=== PATIENT | female | born 1975 | race Hispanic/Latino ===

== ENCOUNTER 2021-03-01 21:37 | Emergency (ER) | payer MEDICAID ==
[~2021-03-01 21:37] MED LIST: DAPA10TA PO; EZET10TA13 PO; INSU100I21 SQ; INSU100V3 SQ; IRON1CAP32 PO; LACO100T2 PO; LEVE750T10 PO; LEVO175T9 PO; LEVO250T59 PO; LOSA50TA64 PO; OXCA300T28 PO; ROSU20TA23 PO
== END 2021-03-02 01:59 | disposition home or self-care (01) ==
LOC: EDH 21:37
DX: S22.32XA Fracture of one rib, left side, initial encounter for closed fracture (principal); S80.01XA Contusion of right knee, initial encounter; I10 Essential (primary) hypertension; E11.9 Type 2 diabetes mellitus without complications; E78.5 Hyperlipidemia, unspecified; E07.9 Disorder of thyroid, unspecified; Z86.73 Personal history of transient ischemic attack (TIA), and cerebral infarction without residual deficits; Z88.1 Allergy status to other antibiotic agents; W18.39XA Other fall on same level, initial encounter; Y93.01 Activity, walking, marching and hiking; Y92.89 Other specified places as the place of occurrence of the external cause; Y99.8 Other external cause status
CPT/HCPCS: 71045; 73562

== ENCOUNTER 2023-02-02 14:15 | Emergency (ER) | payer MEDICAID ==
[~2023-02-02] VITALS: Ht 157.5 cm; Wt 127.0 kg
[~2023-02-02 14:15] MED LIST changes: -INSU100I21 SQ; +INSU100I22 SQ; -LEVO250T59 PO; +LEVO250T75 PO
[2023-02-02 15:15] LABS: BASOPHILS % (AUTO) 0.3 % (0.0-5.0); EOSINOPHILS % (AUTO) 3.4 % (0.0-8.0); HEMATOCRIT 37.2 % (36-48); LYMPHOCYTES % (AUTO) 14.8 % (21.0-51.0); MEAN CORPUSCULAR HEMOGLOBIN 29.4 pg (27.0-33.0); MEAN CORPUSCULAR VOLUME 91.9 fL (79-99); MONOCYTES % (AUTO) 5.6 % (3.0-13.0); NEUTROPHILS % (AUTO) 75.4 % (40.0-77.0); PLATELET COUNT (AUTO) 370 K/uL (130-400); RED BLOOD CELL COUNT(AUTO) 4.05 MIL/uL (4.00-5.50); RED CELL DISTRIBUTION WIDTH 15.4 % (11.0-15.5); WHITE BLOOD COUNT (AUTO) 11.9 K/uL (4.8-10.8)
[2023-02-02 15:31] LABS: ALBUMIN 2.9 g/dL (3.5-5.0); POTASSIUM 3.8 mmol/L (3.5-5.1); TOTAL PROTEIN, SERUM 7.7 g/dL (6.0-8.3)
[2023-02-02] MEDS ORDERED: MECLIZINE HCL 25 MG TABLET PO ONE (16:00)
[2023-02-02] MEDS ORDERED: 0.9% NACL 500ML IV.SOLN 500 ML IV ONE (16:00)
[2023-02-02] MEDS ORDERED: 0.9%NACL 1000ML 1,000 ML IV ONE (16:00)
[2023-02-02 16:33] LABS: HCG,QUALITATIVE URINE NEGATIVE (NEGATIVE)
[2023-02-02 16:40] LABS: APPEARANCE,URINE CLEAR (CLEAR); BILIRUBIN,URINE NEGATIVE (NEGATIVE); COLOR,URINE COLORLESS (YELLOW); GLUCOSE, URINE (UA) >=1000 mg/dL (NEGATIVE); KETONES,URINE NEGATIVE (NEGATIVE); LEUKOCYTE ESTERASE ,URINE NEGATIVE Leu/uL (NEGATIVE); NITRATE,URINE NEGATIVE (NEGATIVE); OCCULT BLOOD,URINE NEGATIVE (NEGATIVE); PROTEIN,URINE NEGATIVE (NEGATIVE); UROBILINOGEN,URINE 0.2 mg/dL (0.2-1.0)
[2023-02-02] MEDS ORDERED: BACI1CAP6 PO (16:56)
[2023-02-02] MEDS ORDERED: ONDA4TAB10 PO (16:56)
[2023-02-02 16:57] LABS: BACTERIA,URINE RARE /HPF (None Seen); RBC,URINE 0-1 /HPF (0-1); SQUAMOUS EPITHELIAL CELL,UR RARE /HPF (0-2)
[2023-02-02 17:52] VITALS: BP 149/59
== END 2023-02-02 18:00 | disposition home or self-care (01) ==
LOC: EDH 14:15
DX: K52.9 Noninfective gastroenteritis and colitis, unspecified (principal); E86.0 Dehydration; E11.65 Type 2 diabetes mellitus with hyperglycemia; E78.00 Pure hypercholesterolemia, unspecified; I10 Essential (primary) hypertension; Z79.899 Other long term (current) drug therapy; Z88.8 Allergy status to other drugs, medicaments and biological substances; Z20.822 Contact with and (suspected) exposure to COVID-19
CPT/HCPCS: 99283; 96374; 87635; 80053; 85025; 82010; 81001; 81025; 36415; C9803; J7040; J7030

== ENCOUNTER 2023-04-14 19:36 | Emergency (ER) | payer MEDICAID ==
[~2023-04-14] VITALS: Ht 157.5 cm; Wt 122.0 kg
[~2023-04-14 19:36] MED LIST changes: +BACI1CAP6 PO; +ONDA4TAB10 PO
[2023-04-14 19:39] VITALS: BP 136/74
[2023-04-14 20:44] LABS: BASOPHILS % (AUTO) 0.3 % (0.0-5.0); HEMATOCRIT 39.4 % (36-48); LYMPHOCYTES % (AUTO) 18.9 % (21.0-51.0); MEAN CORPUSCULAR HEMOGLOBIN 29.1 pg (27.0-33.0); MEAN CORPUSCULAR HGB CONC 31.7 g/dL (32.0-36.0); MEAN CORPUSCULAR VOLUME 91.8 fL (79-99); MONOCYTES % (AUTO) 5.8 % (3.0-13.0); NEUTROPHILS % (AUTO) 72.6 % (40.0-77.0); PLATELET COUNT (AUTO) 396 K/uL (130-400); RED BLOOD CELL COUNT(AUTO) 4.29 MIL/uL (4.00-5.50); RED CELL DISTRIBUTION WIDTH 14.6 % (11.0-15.5); WHITE BLOOD COUNT (AUTO) 14.6 K/uL (4.8-10.8)
[2023-04-14 20:53] LABS: CREATININE 0.9 mg/dL (0.5-1.5); POTASSIUM 4.7 mmol/L (3.5-5.1)
[2023-04-14 20:57] LABS: ALBUMIN 3.2 g/dL (3.5-5.0); TOTAL PROTEIN, SERUM 8.4 g/dL (6.0-8.3)
[2023-04-15 00:01] LABS: APPEARANCE,URINE CLOUDY (CLEAR); BILIRUBIN,URINE NEGATIVE (NEGATIVE); COLOR,URINE YELLOW (YELLOW); GLUCOSE, URINE (UA) >=1000 mg/dL (NEGATIVE); KETONES,URINE NEGATIVE (NEGATIVE); LEUKOCYTE ESTERASE ,URINE 250 Leu/uL (NEGATIVE); NITRATE,URINE NEGATIVE (NEGATIVE); OCCULT BLOOD,URINE NEGATIVE (NEGATIVE); PH,URINE 5.5 (5.0-8.0); PROTEIN,URINE 20 mg/dL (NEGATIVE); UROBILINOGEN,URINE 0.2 mg/dL (0.2-1.0)
[2023-04-15 00:04] LABS: BACTERIA,URINE MOD /HPF (None Seen); MUCUS,URINE RARE LPF (None Seen); SQUAMOUS EPITHELIAL CELL,UR FEW /HPF (0-2); WBC,URINE 26-50 /HPF (0-1)
[2023-04-15] MEDS ORDERED: IBUP-1493 PO (00:30)
[2023-04-15] MEDS ORDERED: CEFTRIAXONE 1G VIAL IVPB ONE (00:30)
[2023-04-15] MEDS ORDERED: CEFU500T67 PO (00:30)
== END 2023-04-15 00:51 | disposition home or self-care (01) ==
LOC: EDH 19:36
DX: N39.0 Urinary tract infection, site not specified (principal); E11.9 Type 2 diabetes mellitus without complications; E78.00 Pure hypercholesterolemia, unspecified; I10 Essential (primary) hypertension; Z79.1 Long term (current) use of non-steroidal anti-inflammatories (NSAID); Z79.4 Long term (current) use of insulin; Z79.899 Other long term (current) drug therapy; Z88.0 Allergy status to penicillin; Z90.49 Acquired absence of other specified parts of digestive tract
CPT/HCPCS: 99285; 74176; 96374; 71045; 80053; 84703; 83690; 85025; 87077; 87088; 87186; 81001; 36415; J0696

== ENCOUNTER 2023-06-08 17:11 | Emergency (ER) | payer MEDICAID ==
[~2023-06-08] VITALS: Ht 157.5 cm; Wt 73.5 kg
[~2023-06-08 17:11] MED LIST changes: +CEFU500T67 PO; +IBUP-1493 PO
[2023-06-08 19:46] VITALS: BP 143/68; PULSE 82; RESP 18
== END 2023-06-08 19:50 | disposition home or self-care (01) ==
LOC: EDH 17:11
DX: S00.03XA Contusion of scalp, initial encounter (principal); W01.198A Fall on same level from slipping, tripping and stumbling with subsequent striking against other object, initial encounter; Y93.89 Activity, other specified; Y92.89 Other specified places as the place of occurrence of the external cause; Y99.8 Other external cause status
CPT/HCPCS: 70450

== ENCOUNTER → 2025-05-05 | Emergency (ER) | payer MEDICAID ==
[~2025-05-05] VITALS: Ht 157.5 cm; Wt 98.4 kg
[~2025-05-05] MED LIST changes: +ATOR40TA71 PO; -BACI1CAP6 PO; -CEFU500T67 PO; +CYCL-309 PO; +ESCI5TAB16 PO; -EZET10TA13 PO; +EZET10TA81 PO; +FAMO20TA8 PO; -IBUP-1493 PO; +IBUP-2070 PO; -INSU100I22 SQ; -INSU100V3 SQ; +LACO200T4 PO; -LEVO175T9 PO; +LEVO200C3 PO; -LEVO250T75 PO; +LOSA-418 PO; +METR-172 PO; +NITR100C PO; -ONDA4TAB10 PO; -OXCA300T28 PO; -ROSU20TA23 PO; +cefTRIAXone 1G VIAL IM ONE
--- NOTE | 2025-05-05 21:58 | ERN ---
ED Note History of Present Illness Stated Complaint: FALL Chief Complaint: Mechanical Fall Time Seen by MD: 21:45 Time Seen by Midlevel: 21:50 Dictation: Ms. Winters is a 49 year old female with history of obesity, hypertension, hyperlipidemia, hypothyroidism, type II DM, and cerebral aneurysm (2011) who presented to the emergency department this evening for evaluation after a fall. She states that she tripped on the carpet at a store and fell onto her left side. She complains of pain to the left side of her head, neck, and left cheek/facial bones. She denies having LOC. She denies taking anticoagulants. She also states she does have some pain to the left knee. She denies fever, chills, shortness of breath, cough, chest pain, palpitations, edema, abdominal pain, nausea, vomiting, hematemesis, constipation, diarrhea, melena, hematochezia, dysuria, dizziness, or focal weakness/paresthesia Allergies: Coded Allergies: Amoxicillin (Verified Allergy, 06/26/13) Home Meds Active Scripts Metronidazole (Metronidazole) 500 Mg Tablet, 1 TAB PO BID for 7 Days, #14 TAB 0 Refills Prov:DEBORAMOLLY CEDILLO PROGRAM COORDINATOR EXECUTIVE EDUCATION 11/04/24 Losartan Potassium (Cozaar) 50 Mg Tablet, 50 MG PO DAILY, #60 TAB Prov:DEBORAMOLLY CEDILLO PROGRAM COORDINATOR EXECUTIVE EDUCATION 11/04/24 Famotidine (Famotidine) 20 Mg Tablet, 20 MG PO DAILY, #60 TAB Prov:DEBORAMOLLY CEDILLO PROGRAM COORDINATOR EXECUTIVE EDUCATION 11/04/24 Reported Medications Atorvastatin Calcium (Atorvastatin Calcium) 40 Mg Tablet, 1 TAB PO DAILY for 30 Days, #30 TAB 0 Refills 11/02/24 Levothyroxine Sodium (Levothyroxine) 200 Mcg Capsule, 200 MCG PO AM, CAP 11/02/24 Escitalopram Oxalate (Escitalopram Oxalate) 5 Mg Tablet, 5 MG PO AM, TAB 11/02/24 Lacosamide (Lacosamide) 200 Mg Tablet, 200 MG PO BID, TAB 11/02/24 Dapagliflozin Propanediol (Farxiga) 10 Mg Tablet, 10 MG PO AM, TAB 11/02/24 Dapagliflozin Propanediol (Farxiga) 10 Mg Tablet, 10 MG PO HS, TAB 10/25/16 Ezetimibe (Zetia) 10 Mg Tablet, 10 MG PO HS, TAB 09/15/16 Iron Fum & P/FA/Vit B & C No.9 (Integra Plus Capsule) 1 Each Capsule, 1 EACH PO DAILY, CAP 09/15/16 Losartan Potassium (Losartan Potassium) 50 Mg Tablet, 50 MG PO DAILY, TAB 09/15/16 Lacosamide (Vimpat) 100 Mg Tab, 100 MG PO BID, TAB 09/15/16 Levetiracetam (Levetiracetam) 750 Mg Tablet, 2 TAB PO BID, TAB 09/15/16 Past Medical History Past Medical History: Diabetes-Type II, High Cholesterol, Hypertension Additional Past Medical Hx: THYROID CA (REMISSION); HX OF ANEURYISM (2011) Surgical History: Appendectomy, Cholecystectomy, Surgical History Other: THYROIDECTOMY PSYCH History: no pertinent psych hx Family History: Negative Social History: Negative, Lives with family History: Not Applicable RN Note Reviewed/Agreed w/PFSH: Yes Review of System Dictation REVIEW OF SYSTEMS: CONSTITUTIONAL: Patient denies fevers, chills, sweats and weight changes. EYES: Patient denies any visual symptoms. EARS, NOSE, AND THROAT: No difficulties with hearing. No symptoms of rhinitis or sore throat. Reports pain to left side of face/cheek. CARDIOVASCULAR: Patient denies chest pains, palpitations, orthopnea and paroxysmal nocturnal dyspnea. RESPIRATORY: No dyspnea on exertion, no wheezing or cough. GI: No nausea, vomiting, diarrhea, constipation, abdominal pain, hematochezia or melena. : No urinary hesitancy or dribbling. No nocturia or urinary frequency. No abnormal urethral discharge. MUSCULOSKELETAL: Reports pain to left lateral neck. Reports pain to left knee. NEUROLOGIC: No chronic headaches, no seizures. Patient denies numbness, tingling or weakness. Reports left-sided headache. PSYCHIATRIC: Patient denies problems with mood disturbance. No problems with anxiety. ENDOCRINE: No excessive urination or excessive thirst. DERMATOLOGIC: Patient denies any rashes or skin changes. Initial Vital Sign VS Vital Signs Date Time Temp Pulse Resp B/P (MAP) Pulse Ox O2 Delivery O2 Flow Rate FiO2 05/05/25 21:25 97.9 88 18 177/92 99 Room Air 05/05/25 22:59 0 21 Physical Exam Dictation Vital signs: Reviewed. Afebrile Constitutional: Uncomfortable. Head/Face: There is tenderness upon palpation to the left cheek/face with edema. Eyes: Periorbital areas with no swelling, redness, or edema. Lids and lashes are normal. Conjunctival injection is absent. Sclera anicteric. Pupils equal, round, reactive to light. ENT: Pinnas intact and no signs of trauma or erythema. Ear canals clear and no discharge. TMs no erythema. No nasal discharge or bleeding noted. Oropharynx with no exudate, redness, swelling, masses, exudates, or evidence of obstruction. Uvula midline. Mucous membranes moist. No loose teeth (does not have bottom teeth per baseline). There is tenderness upon palpation left zygoma. Neck: Trachea midline, no masses palpated, and no cervical lymphadenopathy. No swelling. Supple, full range of motion. Chest/Axilla: No tenderness, no crepitus, no paradoxical movement, no r etractions. Cardiovascular: Regular rate, regular rhythm, no murmur, no gallops. Symmetric pulses. No peripheral edema. BP is elevated at 170 7/92 Respiratory: Respirations even and unlabored. Lung sounds clear; no wheezes, rales or rhonchi. Room air SpO2 99%. Gastrointestinal: Inspection is normal. No distention is appreciated. Bowel sounds are normal. No mass or organomegaly . There is no tenderness. No rebound. No rigidity. No voluntary or involuntary guarding. No Lizama's sign. Neurological: Normal speech, gross motor function intact, gross sensory function intact. No focal weakness/Paresthesia. Moves all extremities. Rigid C-collar is in place. Musculoskeletal/Extremities: Pain with ROM left knee with slight swelling. She has good color, warmth, movement, and sensation to left toes. Capillary refills less than 2 seconds. Pedal pulses palpable/strong. Integumentary: Intact. Skin is normal color, warm and dry. Cap refill less than 2 seconds. Results (Laboratory/Radiology) Laboratory/Radiology Laboratory Tests Test 05/05/25 23:00 Urine Color LIGHT-YELLOW (YELLOW) Urine Appearance CLEAR (CLEAR) Urine pH 5.5 (5.0-8.0) Urine Specific [place] 1.034 (1.001-1.031) Urine Protein NEGATIVE mg/dL (NEGATIVE) Urine Glucose (UA) >=1000 mg/dL (NEGATIVE) H Urine Ketones NEGATIVE mg/dL (NEGATIVE) Urine Occult Blood NEGATIVE (NEGATIVE) Urine Nitrate NEGATIVE (NEGATIVE) Urine Bilirubin NEGATIVE mg/dL (NEGATIVE) Urine Urobilinogen 0.2 mg/dL (0.2-1.0) Urine Leukocyte Esterase 75 Xuan/uL (NEGATIVE) H Urine RBC 2-5 /HPF (0-1) H Urine WBC 26-50 /HPF (0-1) H Urine Squamous Epithelial Cells RARE /HPF (0-2) Urine Bacteria RARE /HPF (None Seen) Labs Reviewed?: Yes X-RAY Comment: PATIENT: FLORENCIO WINTERS MR#: [id number] : 1975 SEX: F AGE: 49 LOCATION: [facility] ORDER 43 STATUS: REG ER REPORT#: [id number] SERVICE 43 REASON: fall injury ORDERING PHYSICIAN: WILFREDO ABDI NP PROCEDURE: KNEE 3V LT - KNEE 3VWS LT KNEE 3VWS LT HISTORY: Status post fall COMPARISON: None TECHNIQUE: 3 images of the left knee were obtained. FINDINGS: There is no acute displaced fracture or dislocation. Degenerative changes are seen. IMPRESSION: 1. Findings as described above. DICTATED BY: ARA PARSONS MD DATE: 05/05/252322 ELECTRONICALLY SIGNED BY: ARA PASRONS MD DATE: 05/05/252325 CT Scan Comment: PATIENT: FLORENCIO WINTERS MR#: [id number] : 1975 SEX: F AGE: 49 LOCATION: [facility] ORDER 13 STATUS: REG ER REPORT#: [id number] SERVICE 11 REASON: left side face swelling/pain s/p fall ORDERING PHYSICIAN: WILFREDO ABDI NP PROCEDURE: MAXFACI WO - CT MAXILLOFACIAL W/O CONTRAST CT MAXILLOFACIAL W/O CONTRAST HISTORY: Status post fall COMPARISON: None TECHNIQUE: Multiple sequential high-resolution axial images of the paranasal sinuses were obtained. Postprocessing sagittal and coronal reconstruction images were also obtained. Patient was not given contrast through intravenous route. FINDINGS: Nasal septum is grossly midline. There is mild mucoperiosteal thickening involving the left maxillary sinus. The infundibula are patent bilaterally. No acute displaced fracture is seen. There is no evidence of air-fluid level in the paranasal sinuses. Parapharyngeal fat planes are preserved bilaterally. Patient is edentulous. IMPRESSION: 1. No acute displaced fracture is seen. Left maxillary sinus disease. CT was performed with one or more following dose reduction techniques: automated exposure control, adjustment of the mA and kv according to patient's size, or use of a iterative reconstruction technique. DICTATED BY: ARA PARSONS MD DATE: 05/05/252312 ELECTRONICALLY SIGNED BY: ARA PARSONS MD DATE: 05/05/252316 PATIENT: FLORENCIO WINTERS MR#: [id number] : 1975 SEX: F AGE: 49 LOCATION: [facility] ORDER 57 STATUS: [facility] REPORT#: [id number] SERVICE 56 REASON: fall injury ORDERING PHYSICIAN: WILFREDO ABDI NP PROCEDURE: C SPIN WO - CT CERVICAL SPINE W/O CONTRAST CT CERVICAL SPINE W/O CONTRAST HISTORY: Status post fall COMPARISON: None TECHNIQUE: Multiple sequential axial images of the cervical spine were obtained including post processing sagittal and coronal reconstruction images. Patient was not given contrast through intravenous route. FINDINGS: There is straightening of normal lordotic cervical curvature which may be related to muscle spasm or positioning. There is no loss of vertebral height. Evaluation for disc and cord pathology is limited with CT study. No evidence of fracture or dislocation is seen. IMPRESSION: 1. No fracture is seen. CT was performed with one or more following dose reduction techniques: automated exposure control, adjustment of the mA and kv according to patient's size, or use of a iterative reconstruction technique. DICTATED BY: ARA PARSONS MD DATE: 05/05/252309 ELECTRONICALLY SIGNED BY: ARA PARSONS MD DATE: 05/05/252314 PATIENT: FLORENCIO WINTERS MR#: [id number] : 1975 SEX: F AGE: 49 LOCATION: [facility] ORDER 48 STATUS: REG ER REPORT#: [id number] SERVICE 47 REASON: fall closed head injury ORDERING PHYSICIAN: CAMILLA TRAVIS MD PROCEDURE: HEAD WO - CT HEAD/BRAIN W/O CONTRAST CT HEAD/BRAIN W/O CONTRAST HISTORY: Status post fall COMPARISON: None TECHNIQUE: Multiple sequential axial images of the head were obtained from the base of the skull through vertex. Patient was not given contrast through intravenous route. FINDINGS: The ventricles and extraventricular CSF spaces are dilated consistent with cerebral atrophy. Nonspecific white matter changes seen. Encephalomalacia changes are seen in the left parietal lobe may relate to old infarct. There is no midline shift, mass effect or herniation. No acute intracranial bleed is seen. Visualized portion of the paranasal sinuses are grossly within normal limits. IMPRESSION: 1. No acute intracranial bleed is seen. 2. Atrophy with white matter changes. CT was performed with one or more following dose reduction techniques: automated exposure control, adjustment of the mA and kv according to patient's size, or use of a iterative reconstruction technique. DICTATED BY: ARA PARSONS MD DATE: 05/05/252306 ELECTRONICALLY SIGNED BY: ARA PARSONS MD DATE: 05/05/252312 ED Course ED Course Orders Procedure Category Date Status Time Ct Head/Brain W/O CT 05/05/25 Resulted Contrast 21:48 Urinalysis Profile LAB 05/05/25 Complete 21:48 Ct Cervical Spine W/O CT 05/05/25 Resulted Contrast 21:57 Ct Maxillofacial W/O CT 05/05/25 Resulted Contrast 22:12 Apply Ice Pack To: CPOE 05/05/25 Transmitted (Er) 22:12 Morphine 4mg Syg PHA 05/05/25 Complete (Morphine 4mg Syg) 22:30 Knee 3vws Lt RAD 05/05/25 Resulted 22:44 Culture Urine PEPPER 05/05/25 In Process 23:24 Current Medications Medications (Trade) Dose Ordered Sig/Mati Route PRN Reason Start Time Stop Time Status Last Admin Dose Admin Morphine Sulfate (morPHINE 4MG SYG) 4 mg ONCE ONCE IM 05/05/25 22:30 05/05/25 22:31 DC 05/05/25 22:19 Vital Signs Date Time Temp Pulse Resp B/P (MAP) Pulse Ox O2 Delivery O2 Flow Rate FiO2 05/05/25 22:59 98.2 84 20 145/50 98 Room Air* 0 21 05/05/25 21:25 97.9 88 18 177/92 99 Room Air Uneventful ED course. Initial blood pressure was elevated 177/92; afebrile with room air SpO2 98-99%. Patient received IM dose of morphine for discomfort and repeat BP 145/50. Laboratory findings as noted below. UA positive glucose, leukocyte esterase, and UWBC 26-50; UCX pending. She received initial dose R ocephin. Left knee immobilizer was placed. She continues to have good color, warmth, movement, and sensation to left toes. Capillary refill brisk. Medical Decision Making MDM MDM: Differential diagnosis: knee fracture, facial bone fracture, IC hemorrhage, UTI Rationale: Tests considered and ordered secondary to shared decision making i nclude: LAB, X ray, CT Previous outside records reviewed: Old ER visits. Risk of complication and/or morbidity or mortality of patient management: None Medications-Per medication reconciliation Need for hospitalization: Patient does not meet criteria for hospitalization. Need for emergency major/minor surgery: No There are no social concerns with this patient. Prescription drug management: Flexeril, Ibuprofen, nitrofurantoin Prescriptions will include symptomatic care Patient's prior external medical records from other ER visits were reviewed by me as indicated. Prior testing and results from previous visits were reviewed. Prior tests were taken into account with medical decision making and resource utilization, independent historian/historians were used to obtain complete medical history. I independently interpreted the test that were performed, results were reviewed by me and considered findings on radiology if ordered. Medical management and examination interpretation discussions were had by me with other qualified healthcare professionals as indicated for the patient's care. DX & DISP Disposition: Discharge Departure Impression: Primary Impression: Strain of left knee Additional Impressions: Contusion of face, Closed head injury Condition: Stable Scripts Ibuprofen (Ibuprofen) 600 Mg Tablet 600 MG PO Q6H PRN for PAIN, #12 TAB Prov: WILFREDO ABDI RADIO TESTER 05/05/25 Cyclobenzaprine HCl (Cyclobenzaprine HCl) 10 Mg Tablet 10 MG PO q 12 hours PRN for muscle spasm, #10 TAB 0 Refills Prov: WILFREDO ABDI NP 05/05/25 Nitrofurantoin Macrocrystal (Nitrofurantoin) 100 Mg Capsule 1 CAP PO BID for 7 Days, #14 CAP 0 Refills Prov: WILFREDO ABDI RADIO TESTER 05/05/25 Additional Instructions: You sustained a bruise to your cheek bone but CAT scan show no fracture. Swelling and redness may persist for a few days. Apply an ice pack for 15-20 minutes at a time during the 1st 48 hours to reduce swelling. Use Tylenol or ibuprofen as needed for discomfort. Avoid heavy chewing or trauma to the area until discomforts a sides. You have a soft tissue (ligament or muscle) strain. Use the provided knee immobilizer. May take Flexeril every 12 hours as needed for muscle spasms. Limit weight-bearing. Ice the knee 3-4 times daily and elevate when resting. Gentle movement and physical therapy may be recommended as pain improves. Return to the ER if you have increased swelling, redness, vision changes, numbness, or worsening pain/difficult opening the jaw. Return to the ER review of worsening swelling bruising of the knee, inability to bear weight, or numbness/tingling/signs of clot to the calf. You were also diagnosed with urinary tract in infection. Finished course of nitrofurantoin even if symptoms improve. Drink plenty of fluids to flush out the infection. Follow up with your PCP next week. Referrals: GLADIS MARX MD (PCP) Time of Disposition: 23:58 WIFLREDO ABDI NP May 05, 2025 21:58
[2025-05-05] MEDS: morPHINE 4 MG SYG IM ONE (22:19)
--- NOTE | 2025-05-05 23:13 | HMCIMG ---
CT HEAD/BRAIN W/O CONTRAST HISTORY: Status post fall COMPARISON: None TECHNIQUE: Multiple sequential axial images of the head were obtained from the base of the skull through vertex. Patient was not given contrast through intravenous route. FINDINGS: The ventricles and extraventricular CSF spaces are dilated consistent with cerebral atrophy. Nonspecific white matter changes seen. Encephalomalacia changes are seen in the left parietal lobe may relate to old infarct. There is no midline shift, mass effect or herniation. No acute intracranial bleed is seen. Visualized portion of the paranasal sinuses are grossly within normal limits. IMPRESSION: 1. No acute intracranial bleed is seen. 2. Atrophy with white matter changes. CT was performed with one or more following dose reduction techniques: automated exposure control, adjustment of the mA and kv according to patient's size, or use of a iterative reconstruction technique.
--- NOTE | 2025-05-05 23:15 | HMCIMG ---
CT CERVICAL SPINE W/O CONTRAST HISTORY: Status post fall COMPARISON: None TECHNIQUE: Multiple sequential axial images of the cervical spine were obtained including post processing sagittal and coronal reconstruction images. Patient was not given contrast through intravenous route. FINDINGS: There is straightening of normal lordotic cervical curvature which may be related to muscle spasm or positioning. There is no loss of vertebral height. Evaluation for disc and cord pathology is limited with CT study. No evidence of fracture or dislocation is seen. IMPRESSION: 1. No fracture is seen. CT was performed with one or more following dose reduction techniques: automated exposure control, adjustment of the mA and kv according to patient's size, or use of a iterative reconstruction technique.
--- NOTE | 2025-05-05 23:17 | HMCIMG ---
CT MAXILLOFACIAL W/O CONTRAST HISTORY: Status post fall COMPARISON: None TECHNIQUE: Multiple sequential high-resolution axial images of the paranasal sinuses were obtained. Postprocessing sagittal and coronal reconstruction images were also obtained. Patient was not given contrast through intravenous route. FINDINGS: Nasal septum is grossly midline. There is mild mucoperiosteal thickening involving the left maxillary sinus. The infundibula are patent bilaterally. No acute displaced fracture is seen. There is no evidence of air-fluid level in the paranasal sinuses. Parapharyngeal fat planes are preserved bilaterally. Patient is edentulous. IMPRESSION: 1. No acute displaced fracture is seen. Left maxillary sinus disease. CT was performed with one or more following dose reduction techniques: automated exposure control, adjustment of the mA and kv according to patient's size, or use of a iterative reconstruction technique.
[2025-05-05 23:23] LABS: APPEARANCE,URINE CLEAR (CLEAR); BILIRUBIN,URINE NEGATIVE (NEGATIVE); COLOR,URINE LIGHT-YELLOW (YELLOW); GLUCOSE, URINE (UA) >=1000 mg/dL (NEGATIVE); KETONES,URINE NEGATIVE (NEGATIVE); LEUKOCYTE ESTERASE ,URINE 75 Leu/uL (NEGATIVE); NITRATE,URINE NEGATIVE (NEGATIVE); OCCULT BLOOD,URINE NEGATIVE (NEGATIVE); PH,URINE 5.5 (5.0-8.0); PROTEIN,URINE NEGATIVE (NEGATIVE); UROBILINOGEN,URINE 0.2 mg/dL (0.2-1.0)
[2025-05-05 23:24] LABS: ADD UA MICROSCOPIC YES
[2025-05-05 23:25] LABS: BACTERIA,URINE RARE /HPF (None Seen); SQUAMOUS EPITHELIAL CELL,UR RARE /HPF (0-2); WBC,URINE 26-50 /HPF (0-1)
--- NOTE | 2025-05-05 23:26 | HMCIMG ---
KNEE 3VWS LT HISTORY: Status post fall COMPARISON: None TECHNIQUE: 3 images of the left knee were obtained. FINDINGS: There is no acute displaced fracture or dislocation. Degenerative changes are seen. IMPRESSION: 1. Findings as described above.
[2025-05-06 00:05] VITALS: BP 153/67; PULSE 79; RESP 20; TEMP 98.6; O2SAT 98
[2025-05-06] MEDS: NITROFURANTOIN MONOHYD/M-CRYST 100 MG CAPSULE PO ONE (00:05)
--- NOTE | 2025-05-06 00:14 | NUR ---
KNEE IMOBILIZER APPLIED TO PATIENT AT THIS TIME, GOOD PEDAL PULSE PALPATED AND CAPILLARY REFILL, EDUCATED PATIENT ON HOW TO REAPPLY IF TAKEN OFF, INSTRUCTED PT TO KEEP ON UNTIL FOLLOW UP WITH PCP. NO FURTHER QUESTIONS ASKED AT THIS TIME./SIOBHAN
== END ==
LOC: EDH 21:24
DX: S86.912A Strain of unspecified muscle(s) and tendon(s) at lower leg level, left leg, initial encounter (principal); S00.83XA Contusion of other part of head, initial encounter; E11.9 Type 2 diabetes mellitus without complications; E78.00 Pure hypercholesterolemia, unspecified; I10 Essential (primary) hypertension; J32.0 Chronic maxillary sinusitis; Z79.899 Other long term (current) drug therapy; Z88.0 Allergy status to penicillin; Z90.49 Acquired absence of other specified parts of digestive tract; Z90.89 Acquired absence of other organs; Z98.890 Other specified postprocedural states; W01.0XXA Fall on same level from slipping, tripping and stumbling without subsequent striking against object, initial encounter; Y93.89 Activity, other specified; Y92.89 Other specified places as the place of occurrence of the external cause; Y99.8 Other external cause status
CPT/HCPCS: 99285; 70450; 29505; 87086 ×2; 87186; 81001; 73562; 72125; 70486; 96372; J2270